=== PATIENT | male | born 1935 | race Caucasian/White ===

== ENCOUNTER → 2024-06-01 | Outpatient (CLI) | payer OTHER ==
[2024-06-01 10:00] LABS: BASOPHILS # (AUTO) 0.02 K/uL (0.00-0.20); BASOPHILS % (AUTO) 0.3 % (0.0-5.0); EOSINOPHILS # (AUTO) 0.32 K/uL (0.00-0.70); EOSINOPHILS % (AUTO) 4.5 % (0.0-8.0); HEMATOCRIT 42.5 % (42-54); IMMATURE GRANULOCYTE ABSOLUTE 0.03 K/uL (0-1); LYMPHOCYTES # (AUTO) 2.3 K/uL (1.0-4.8); LYMPHOCYTES % (AUTO) 32.1 % (21.0-51.0); MEAN CORPUSCULAR HEMOGLOBIN 31.5 pg (27.0-33.0); MEAN CORPUSCULAR HGB CONC 32.2 g/dL (32.0-36.0); MEAN CORPUSCULAR VOLUME 97.7 fL (79-99); MONOCYTES # (AUTO) 0.8 K/uL (0.1-1.0); MONOCYTES % (AUTO) 11.3 % (3.0-13.0); NEUTROPHILS # (AUTO) 3.7 K/uL (1.8-7.7); NEUTROPHILS % (AUTO) 51.4 % (40.0-77.0); PLATELET COUNT (AUTO) 229 K/uL (130-400); RED BLOOD CELL COUNT(AUTO) 4.35 MIL/uL (4.50-6.20); RED CELL DISTRIBUTION WIDTH 13.1 % (11.0-15.5); WHITE BLOOD COUNT (AUTO) 7.2 K/uL (4.8-10.8)
[2024-06-01 10:09] LABS: CREATININE 1.4 mg/dL (0.5-1.3); POTASSIUM 5.7 mmol/L (3.5-5.1)
[2024-06-01 10:13] LABS: INR 1.15 (0.85-1.15); PROTHROMBIN TIME 12.7 SEC (9.6-11.6)
[2024-06-01 10:14] LABS: PARTIAL THROMBOPLASTIN TIME 29.6 SEC (26.3-35.5)
== END | disposition home or self-care (01) ==
LOC: LAB 08:54
PROVIDERS: ATTEND Internal Medicine
DX: I48.0 Paroxysmal atrial fibrillation (principal)
CPT/HCPCS: 36415; 80048; 85025; 85610; 85730

== ENCOUNTER 2024-06-11 06:45 | Day surgery (SDC) | payer OTHER ==
[2024-06-08 09:06] LABS: BASOPHILS # (AUTO) 0.02 K/uL (0.00-0.20); BASOPHILS % (AUTO) 0.3 % (0.0-5.0); EOSINOPHILS # (AUTO) 0.26 K/uL (0.00-0.70); HEMATOCRIT 40.3 % (42-54); IMMATURE GRANULOCYTE ABSOLUTE 0.01 K/uL (0-1); LYMPHOCYTES # (AUTO) 2.1 K/uL (1.0-4.8); LYMPHOCYTES % (AUTO) 32.1 % (21.0-51.0); MEAN CORPUSCULAR HEMOGLOBIN 31.5 pg (27.0-33.0); MEAN CORPUSCULAR HGB CONC 32.5 g/dL (32.0-36.0); MEAN CORPUSCULAR VOLUME 96.9 fL (79-99); MONOCYTES # (AUTO) 0.7 K/uL (0.1-1.0); MONOCYTES % (AUTO) 11.2 % (3.0-13.0); NEUTROPHILS # (AUTO) 3.4 K/uL (1.8-7.7); NEUTROPHILS % (AUTO) 52.2 % (40.0-77.0); PLATELET COUNT (AUTO) 213 K/uL (130-400); RED BLOOD CELL COUNT(AUTO) 4.16 MIL/uL (4.50-6.20); RED CELL DISTRIBUTION WIDTH 13.2 % (11.0-15.5); WHITE BLOOD COUNT (AUTO) 6.6 K/uL (4.8-10.8)
[2024-06-08 09:16] LABS: CREATININE 1.2 mg/dL (0.5-1.3); POTASSIUM 5.2 mmol/L (3.5-5.1)
[2024-06-08 09:18] VITALS: BP 141/83; PULSE 65; RESP 18; TEMP 97.4
[2024-06-08 09:20] LABS: INR 1.08 (0.85-1.15)
[2024-06-08 09:21] LABS: PARTIAL THROMBOPLASTIN TIME 28.5 SEC (26.3-35.5)
--- NOTE | 2024-06-08 13:27 | NUR ---
report reported potassium level to dr bran. ok to proceed
[~2024-06-11] VITALS: Ht 175.3 cm; Wt 83.2 kg
[~2024-06-11 06:45] MED LIST: APIX5TAB PO; ATOR40TA71 PO; LORA10TA7 PO; METO25TA6 PO
--- NOTE | 2024-06-11 07:06 | EKG ---
[facility] Test Date: 2024-06-11 Test Time: 07:56:29 Pat Name: ANAIS VERAS Department: [facility] Room: [facility] Gender: M Mental Health Orderly: [id number] : 1935 Requested By: TAWANNA MOLINA Order Number: [id number] Reading MD: Tawanna Molina Measurements Intervals [place] Rate: 74 P: 0 AR: 0 QRS: -44 QRSD: 109 T: 16 QT: 379 QTc: 421 Interpretive Statements Atrial fibrillation Left anterior fascicular block Low voltage, extremity leads No previous ECG available for comparison Electronically Signed On 06-11-2024 10:34:32 [employer] W[employer]END[employer] by Tawanna Molina Please click the below link to view image of tracing.
[2024-06-11 07:20] VITALS: BP 147/79; PULSE 72; RESP 15; TEMP 97.2
[2024-06-11] MEDS ORDERED: 0.9%NACL 1000ML 1,000 ML IV SCH (07:30)
[2024-06-11] MEDS ORDERED: LIDOCAINE HCL 2% VISCOUS 15 ML UDCUP PO ONE (08:00)
[2024-06-11] MEDS ORDERED: proPOFol 10 MG/ML 20ML VIAL IV ONE ×3 (09:03→09:25)
[2024-06-11 09:45] VITALS: BP 103/58; PULSE 77; RESP 16
--- NOTE | 2024-06-11 09:52 | EKG ---
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1935 Requested By: TAWANNA MOLINA Order Number: [id number] Reading MD: Tawanna Molina Measurements Intervals [place] Rate: 75 P: 75 SD: 294 QRS: -52 QRSD: 114 T: 62 QT: 399 QTc: 445 Interpretive Statements Sinus rhythm with first degree AV block Incomplete left bundle branch block Compared to ECG 06/11/2024 07:56:29 First degree AV block now present Left bundle-branch block now present Atrial fibrillation no longer present Left anterior fascicular block no longer present Electronically Signed On 06-11-2024 10:34:53 MET[employer] by Tawanna Molina Please click the below link to view image of tracing.
[2024-06-11 09:55] VITALS: BP 112/64; PULSE 76; RESP 15
[2024-06-11 10:05] VITALS: BP 110/57; PULSE 74; RESP 14
--- NOTE | 2024-06-11 10:19 | HMCSR ---
APPROVED REPORT EXAM: Transesophageal echocardiogram with color flow Doppler. Study Details: Probe#[id number] INDICATION ICD: I48.0 Chronic AF, Paroxysmal A-Fib Contrast Details Indication: Rule out PFO Agent/Amount Used: Agitated Saline Reason For Test : Rule out Intracardiac Thrombus. PROCEDURE After obtaining informed consent, patient underwent transesophageal echo in the 16 15 mL 2% Viscous Lidocaine was given as a topical anesthetic prior to the administration of the consc ious sedation. Type of Sedation: General Anesthesia Sedation was administered by Please refer to medication administration record.. Sedation was achieved with Please refer to medication administration record. intravenously. Transesophageal probe was inserted and advanced into esophagus without difficulty by Inessa Molina MD. Echo enhancement indication: R/O Septal defect. Echo enhancement agent administered: Agitated Saline. TAMICA was performed and images were obtained, probe was removed without complications. Prior to cardioversion, of Please refer to medication administration record. was administered. Synchronized Cardioversion attempted: Successful Synchronized Cardioversion acheived with 200 Joules after 1 attempt(s). Rhythm following Synchronized Cardioversion: Sinus rhythm Throughout the procedure, the blood pressure, pulse oximetry, cardiac rhythm, and rate were monitored . Left Ventricle Left ventricular cavity size is normal. There is normal left ventricular wall thickness. LVEF is 50-5 5%. No left ventricle thrombus noted on this study. Right Ventricle The right ventricle is normal size. Systolic function is moderately reduced. Atria The left atrium is moderately dilated. No left atrial appendage thrombus noted with low flow velocity noted. There is no mass or thrombus suspected in the left atrium. Negative bubble study. No evidence of PFO/ASD by agitated saline and color doppler. The right atrium is severely dilated. There is no m ass or thrombus suspected in the right atrium. Aortic Valve The aortic valve is trileaflet normal in structure and function. Trivial aortic regurgitation is pres ent. There is no aortic valvular stenosis. Mitral Valve Mitral valve leaflets open well and appear normal. There is moderate mitral valve regurgitation with the three central jets noted. There is no mitral valve stenosis. Tricuspid Valve The tricuspid valve is normal in structure and function. There is mild tricuspid valve regurgitation with two central jets noted. Pulmonic Valve The pulmonary valve is normal in structure and function. There is trivial pulmonic valvular regurgita tion. Great Vessels The aortic root is normal in size. Descending aorta appears normal in size. Ascending aorta appears n ormal in size. Pericardium The pericardium appears normal. No pericardial effusion. Conclusion LVEF is 50-55%. No left ventricle thrombus noted on this study. The left atrium is moderately dilated. No left atrial appendage thrombus noted with low flow velocity noted. There is no mass or thrombus suspected in the left atrium. Negative bubble study. No evidence of PFO/ASD by agitated saline and color doppler. There is moderate mitral valve regurgitation with the three central jets noted. There is mild tricuspid valve regurgitation with two central jets noted.
[2024-06-11 10:20] VITALS: BP 105/61; PULSE 75; RESP 16
[2024-06-11 10:35] VITALS: BP 112/58; PULSE 77; RESP 15
== END 2024-06-11 10:45 | disposition home or self-care (01) ==
LOC: DAH 06:45
PROVIDERS: ATTEND Internal Medicine
DX: I48.20 Chronic atrial fibrillation, unspecified (principal); I08.8 Other rheumatic multiple valve diseases; I44.4 Left anterior fascicular block; I44.0 Atrioventricular block, first degree; I48.0 Paroxysmal atrial fibrillation; Z79.899 Other long term (current) drug therapy; Z79.01 Long term (current) use of anticoagulants; Z98.890 Other specified postprocedural states
CPT/HCPCS: 80048; 85025; 85610; 85730; 36415; 92960; 93325; 93005 ×2; C8925; J7030; J2704 ×2; A4620; A4215; A4657; A4222; A4221; A4663; A4216 ×2; A4606; A4223 ×3; 93312; J3490